=== PATIENT | male | born 1945 | race Caucasian/White ===

== ENCOUNTER 2020-08-12 02:24 | Outpatient (CLI) | payer MEDICARE, SELFPAY ==
[2020-08-12 19:47] LABS: SARS-CoV-2 RNA PCR Negative
== END 2020-08-12 02:25 | disposition home or self-care (01) ==
LOC: ANHCOVIDDT 02:27
PROVIDERS: PCP Family Medicine; Visit Provider Internal Medicine Gastroenterology
DX: Z01.812 Encounter for preprocedural laboratory examination (principal); Z20.828 Contact with and (suspected) exposure to other viral communicable diseases
CPT/HCPCS: 87635; C9803; U0003

== ENCOUNTER 2020-08-15 04:45 | Day surgery (SDC) | payer MEDICARE, SELFPAY ==
[2020-08-11 13:45] VITALS: BMI 29.3
[2020-08-15 08:03] VITALS: BP 111/78; PULSE 90; RESP 18; O2SAT 99
--- NOTE | 2020-08-15 08:11 | WPDANESEPPF ---
Anes - Initial Pre Proc Eval Procedure: Operation Date: 08/15/20 09:45 Proposed Procedures p Screening Colonoscopy - Stefan Travis MD Date/Time: 08/15/20 08:11 Surgeon: Stefan Travis MD Pre Op Diagnosis: neoplasm screening Patient Data Age: 75 Gender: M Height: 5 ft 5 in Weight: 79.9 kg Last Vital Signs Pulse 90 08/15/20 08:03 Resp 18 08/15/20 08:03 BP 111/78 08/15/20 08:03 Pulse Ox 99 08/15/20 08:03 Allergies Allergy/AdvReac Type Severity Reaction Status Date / Time No Known Allergies Allergy Verified 08/15/20 08:01 Home Medications Medication Instructions Recorded Confirmed Type metformin 500 mg PO DAILY 08/11/20 08/11/20 History rosuvastatin 10 mg PO DAILY 08/11/20 08/11/20 History Patient hx anesthesia problems: none Family hx anesthesia problems: none PMFSH Past Medical History Medical History Diabetes Hyperlipidemia Social History Social History Living arrangements: with friend(s) Spiritual care concerns: No Anes - Eval Final PreProcedure Day of Procedure 08/15/20 08:11 Patient weight: overweight Heart: regular rate and rhythm Lungs: clear to auscultation Airway: Mallampati scale class II Neurological: alert and oriented Last oral intake: >/= 8 hours ASA classification: III Emergent: no Anesthetic plan: proceed Anesthesia type and monitoring: general GIVS and standard monitoring Informed Consent: The patient's anesthetic plan and its attendant risks and benefits were discussed with the patient/family/POA. Questions were solicited and answers provided to the satisfaction of the patient/family/POA.
[2020-08-15] MEDS: LACTATED RINGERS 1,000 ML 150 ML IV CONT (08:16)
[2020-08-15 08:24] LABS: Glucose Point of Care 108 (65-105)
--- NOTE | 2020-08-15 09:24 | PM.HPGS ---
History of Present Illness History of Present Illness Consent: Risks, benefits, and alternatives have been discussed and questions answered. Patient agrees to proceed with procedure. Chief complaint: neoplasm screening Narrative: Molina Pollock is a 75 year old male with colon polyps ~ 3-4 years ago. Review of Systems Constitutional: Constitutional: Denies headache(s) and Denies weakness Eyes: Eyes: Denies blurry vision ENT: Reports Normal hearing present, Denies headache(s) and Denies neck pain Cardiovascular: Cardiovascular: Denies chest pain and Denies dyspnea Respiratory: Respiratory: Denies dyspnea Gastrointestinal: Gastrointestinal: Reports no additional gastrointestinal complaints Genitourinary: Genitourinary: Denies dysuria Musculoskeletal: Musculoskeletal: Denies neck pain Integumentary/Breasts: Skin/Breast: Denies dry skin Neurologic: Reports Normal hearing present, Denies headache(s) and Denies weakness Psychiatric: Psychiatric: Denies anxiety Endocrine: Endocrine: Denies change in body appearance Hematologic/Lymphatic: Hematologic/Lymphatic: Denies easy bleeding Allergic/Immunologic: Allergic/Immunologic: Denies urticaria PMFSH Past Medical History Medical History Diabetes Hyperlipidemia Social History Social History Living arrangements: with friend(s) Spiritual care concerns: No Meds Home Medications and Allergies Home Medications Medication Instructions Recorded Confirmed Type metformin 500 mg PO DAILY 08/11/20 08/11/20 History rosuvastatin 10 mg PO DAILY 08/11/20 08/11/20 History Allergies Allergy/AdvReac Type Severity Reaction Status Date / Time No Known Allergies Allergy Verified 08/15/20 08:01 Vital Signs Vital Signs - 24 hr 08/15/20 08:03 Pulse Rate 90 Respiratory Rate 18 Blood Pressure 111/78 Pulse Oximetry 99 Exam Const: General: comfortable and no acute distress HENMT: General nose exam: Normal nares present Eyes: General: appearance normal, both eyes and all related structures Neck: Neck: no JVD Resp: Auscultation: clear to auscultation bilaterally Cardio: Rate: regular rate Rhythm: regular rhythm GI: Inspection: non-distended GI Palp: Yes Soft to palpation Skin: General skin exam: normal color Neuro: General: gait normal Speech: normal speech Extrem: General: normal to inspection Psych: Mental Status: mental status grossly normal Assessment and Plan Assessment and plan (1) Adenomatous colon polyp: Code(s): D12.6 - Benign neoplasm of colon, unspecified Status: Acute Assessment and Plan: he is due to have another colonoscopy
[2020-08-15 09:43] VITALS: BP 101/67; PULSE 79; RESP 20; O2SAT 95
[2020-08-15 09:53] VITALS: BP 109/77; PULSE 69; RESP 17; O2SAT 97
[2020-08-15 10:03] VITALS: BP 117/74; PULSE 64; RESP 16; O2SAT 99
== END 2020-08-15 10:21 | disposition home or self-care (01) ==
PROVIDERS: PCP Family Medicine; Visit Provider Internal Medicine Gastroenterology
PROC: 0DJD8ZZ Inspection of Lower Intestinal Tract, Via Natural or Artificial Opening Endoscopic (ICD-10-PCS; CPT 45378; principal; 2020-08-15 09:45)
DX: Z12.11 Encounter for screening for malignant neoplasm of colon (principal); K63.5 Polyp of colon; K57.30 Diverticulosis of large intestine without perforation or abscess without bleeding; K64.8 Other hemorrhoids; E11.9 Type 2 diabetes mellitus without complications; E78.5 Hyperlipidemia, unspecified; Z79.84 Long term (current) use of oral hypoglycemic drugs
CPT/HCPCS: 45380; 88305; J2704; J7120